=== PATIENT | female | born 1970 | race Caucasian/White ===

== ENCOUNTER → 2017-01-02 | Outpatient (CLI) | payer OTHER | LOC: MC.RAD 08:00 | DX: Z12.31 Encounter for screening mammogram for malignant neoplasm of breast (principal) ==

== ENCOUNTER → 2018-02-04 | Outpatient (CLI) | payer BC | LOC: MC.RAD 08:00 | DX: Z12.31 Encounter for screening mammogram for malignant neoplasm of breast (principal) ==

== ENCOUNTER → 2018-04-05 | Outpatient (CLI) | payer BC ==
[~2018-04-05] VITALS: Ht 165.1 cm; Wt 64.1 kg
[~2018-04-05] MED LIST: ESTROVEN MAX400 MCG PO; LOW-OGESTREL 281 TAB PO; MULTIPLE VITAMI1 CAP PO
[2018-04-05 07:50] VITALS: BP 132/84; PULSE 77
[2018-04-05 08:45] VITALS: BP 134/90; PULSE 79
== END ==
LOC: COL.RAD 07:00
DX: M43.16 Spondylolisthesis, lumbar region (principal)
CPT/HCPCS: J3301

== ENCOUNTER → 2019-05-12 | Outpatient (CLI) | payer BC | LOC: MC.RAD 16:10 | DX: Z12.31 Encounter for screening mammogram for malignant neoplasm of breast (principal) ==

== ENCOUNTER → 2021-01-18 | Outpatient (CLI) | payer BC | LOC: MC.RAD 08:54 | DX: Z12.31 Encounter for screening mammogram for malignant neoplasm of breast (principal) ==

== ENCOUNTER → 2022-01-20 | Outpatient (CLI) | payer BC | LOC: MC.RAD 08:22 | DX: Z12.31 Encounter for screening mammogram for malignant neoplasm of breast (principal); N64.9 Disorder of breast, unspecified ==

== ENCOUNTER → 2022-01-23 | Outpatient (CLI) | payer BC | LOC: MC.RAD 08:26 | DX: N60.02 Solitary cyst of left breast (principal) ==

== ENCOUNTER → 2024-04-13 | Outpatient (CLI) | payer BC | LOC: MHCPAIN 15:19 | DX: M54.16 Radiculopathy, lumbar region (principal); M43.16 Spondylolisthesis, lumbar region; M47.817 Spondylosis without myelopathy or radiculopathy, lumbosacral region | CPT/HCPCS: G0463 ==

== ENCOUNTER → 2024-04-25 | Outpatient (CLI) | payer BC ==
[~2024-04-25] MED LIST changes: +Iohexol 300 - 10 ML VIAL ONE; +Lidocaine PF 2% (20 MG/ML) 2 ML VIAL ONE
== END ==
LOC: MHCPAIN 10:22
DX: M54.16 Radiculopathy, lumbar region (principal)
CPT/HCPCS: J1100; Q9967